=== PATIENT | female | born 1995 | race Caucasian/White ===

== ENCOUNTER → 2017-09-15 | Outpatient (CLI) | payer OTHER ==
--- NOTE | 2017-09-15 17:13 | US ---
EXAMINATION TYPE: US OB <= 14 wk fetus DATE OF EXAM: 09/15/2017 COMPARISON: NONE CLINICAL HISTORY: Z34.01 Encounter for normal : ; smoker; patient denies pelvic pain EXAM PERFORMED: Transabdominal (TA) EXAM MEASUREMENTS: GESTATIONAL AGE / DATING Physician Established: Not yet established Dates by LMP: (7 weeks/3 days) EDC: 05/01/2018 Dates by First Scan: No previous; this is first scan Dates by Current Scan for: (7 weeks/2 days) EDC: 05/02/2018 MATERNAL ANATOMY Uterus: 8.5 x 4.6 x 4.5cm Right Ovary: 3.8 x 2.9 x 2.3cm Left Ovary: 7.2 x 6.5 x 5.4cm ; enlarged left ovary with enlarged cyst = 7.2 x 6.6 x 4.8cm with inter nal echoes posterior wall. Post CDS / Adnexa: wnl Presence of free fluid: no Presence of corpus luteal cyst: may be in left ovary as enlarged thick walled cyst adjacent to thin w alled enlarged cyst. TAUS performed to better assess left ovary located very lateral pelvis. Minimal color flow is seen at periphery, but is believed to be documented in ovarian artery and vein. Presence of subchorionic bleed: small anechoic area noted superior to gestational sac = 0.3 x 0.4 x 1 .2cm. GESTATION / SURVEY CRL: 1.1cm (7 weeks/2 days) Yolk Sac (normal less than 6mm): 2.4mm Heart Rate: 138 bpm Rhythm: Normal IUP: Viable IUP Date of LMP: 07/25/2017 Beta HcG (if available): NA Single, live IUP, 7 weeks/2 days, EDC: 05/02/2018; [id number]; possible small subchorionic bleed; enlar ged left ovary with enlarged cyst. IMPRESSION: There is a tiny 12 x 3 mm subchorionic fluid collection consistent with subchorionic hemorrhage. Single living fetus with gestational age of 7 weeks 2 days. Very large left ovarian cyst that measures 7.2 x 5 cm.
== END | disposition home or self-care (01) ==
LOC: RADUSWWP 15:31
PROVIDERS: ATTEND Obstetrics & Gynecology
DX: O34.81 Maternal care for other abnormalities of pelvic organs, first trimester (principal); N83.202 Unspecified ovarian cyst, left side; Z3A.01 Less than 8 weeks gestation of pregnancy
CPT/HCPCS: 76801

== ENCOUNTER 2022-01-05 14:18 | Emergency (ER) | payer OTHER ==
[2022-01-05 14:36] VITALS: RESP 16; TEMP 98.1
[2022-01-05] MEDS ORDERED: SODIUM CHLORIDE 0.9% 1,000 ML IV STA (15:27)
--- NOTE | 2022-01-05 16:04 | ED ---
Abdominal Pain HPI - General Chief Complaint: OB/Uterine Contractions Stated Complaint: 19 weeks preg/Abd pressure Time Seen by Provider: 01/05/22 15:09 Source: patient Mode of arrival: ambulatory Limitations: no limitations - History of Present Illness Initial Comments: Patient is a 26-year-old A0 female at 18 weeks 6 days who presents to the emergency department with a chief complaint of pelvic pain. Patient states the pain started last night in the bilateral pelvic region. States pain is mild, intermittent, and when it occurs she also feels a "pressure in her vagina." States it does not feel like early [place]. States she does not have burning with urination however states the pressure in her vagina worsens with urination. She denies fever, chills, nausea, vomiting, blood in the urine, vaginal discharge, and vaginal bleeding. Denies concern for STIs. Patient's OB is Dr. Taylor however states she is looking for a new OB for delivery due to [facility] OB floor closing. - Related Data Allergies Allergy/AdvReac Type Severity Reaction Status Date / Time No Known Allergies Allergy Verified 01/05/22 14:35 Review of Systems ROS Statement: Those systems with pertinent positive or pertinent negative responses have been documented in the HPI. ROS Other: All systems not noted in ROS Statement are negative. Past Medical History Past Medical History: No Reported History History of Any Multi-Drug Resistant Organisms: None Reported Past Surgical History: No Surgical Hx Reported Past Psychological History: No Psychological Hx Reported Smoking Status: Current every day smoker Past Alcohol Use History: Rare Past Drug Use History: Marijuana General Exam Limitations: no limitations General appearance: alert Head exam: Present: atraumatic, normocephalic, normal inspection Eye exam: Present: normal appearance, PERRL, EOMI. Absent: scleral icterus, conjunctival injection, periorbital swelling Respiratory exam: Present: normal lung sounds bilaterally. Absent: respiratory distress, wheezes, rales, rhonchi, stridor Cardiovascular Exam: Present: regular rate, normal rhythm, normal heart sounds. Absent: systolic murmur, diastolic murmur, rubs, gallop, clicks GI/Abdominal exam: Present: soft, normal bowel sounds. Absent: distended, tenderness, guarding, rebound, rigid External exam: Present: normal external exam Speculum exam: Present: normal speculum exam, vaginal discharge (white, normal consistency ). Absent: vaginal bleeding Neurological exam: Present: alert, oriented X3, CN II-XII intact Psychiatric exam: Present: normal affect, normal mood Skin exam: Present: warm, dry, intact, normal color. Absent: rash Course Vital Signs 01/05/22 14:33 Temperature 98.1 F Pulse Rate 81 Respiratory 16 Rate Blood Pressure 108/67 O2 Sat by Pulse 99 Oximetry Medical Decision Making - Medical Decision Making This is a 26-year-old female who presents with intermittent bilateral pelvic pain. Thorough history and examination were performed. Patient is well-appearing and in no apparent distress. No vaginal bleeding. Abdomen is soft and nontender. Due to patient's report of vaginal pain I did perform a speculum exam which was normal. I will obtain laboratory studies as well as ultrasound. Laboratory studies are relatively unremarkable. Serum hCG is 5841.8. Urinalysis is not indicative of infection. Ultrasound shows a single intrauterine gestation with heart rate at 157. Results discussed with patient. Patient reassured that baby is doing well. She will be referred to Dr. Martinez. She is instructed to schedule an appointment with her in 1-2 days. Return parameters discussed. Patient verbalizes understanding and is agreeable to this plan. Dr. Cordoba is my attending. - Lab Data Result diagrams: 01/05/22 15:39 01/05/22 15:39 Lab Results 01/05/22 01/05/22 01/05/22 Range/Units 15:39 15:39 15:39 WBC 8.8 (3.8-10.6) k/uL RBC 4.35 (3.80-5.40) m/uL Hgb 13.1 (11.4-16.0) gm/dL Hct 38.0 (34.0-46.0) % MCV 87.4 (80.0-100.0) fL MCH 30.0 (25.0-35.0) pg MCHC 34.4 (31.0-37.0) g/dL RDW 13.6 (11.5-15.5) % Plt Count 187 (150-450) k/uL MPV 8.3 Neutrophils % 75 % Lymphocytes % 19 % Monocytes % 4 % Eosinophils % 1 % Basophils % 0 % Neutrophils # 6.6 (1.3-7.7) k/uL Lymphocytes # 1.6 (1.0-4.8) k/uL Monocytes # 0.4 (0-1.0) k/uL Eosinophils # 0.1 (0-0.7) k/uL Basophils # 0.0 (0-0.2) k/uL Sodium 135 L (137-145) mmol/L Potassium 3.5 (3.5-5.1) mmol/L Chloride 107 (98-107) mmol/L Carbon Dioxide 19 L (22-30) mmol/L Anion Gap 9 mmol/L BUN 6 L (7-17) mg/dL Creatinine 0.46 L (0.52-1.04) mg/dL Est GFR (CKD-EPI)AfAm >90 (>60 ml/min/1.73 sqM) Est GFR (CKD-EPI)NonAf >90 (>60 ml/min/1.73 sqM) Glucose 105 H (74-99) mg/dL Calcium 8.6 (8.4-10.2) mg/dL Total Bilirubin 0.3 (0.2-1.3) mg/dL AST 20 (14-36) U/L ALT 12 (4-34) U/L Alkaline Phosphatase 61 (38-126) U/L Total Protein 6.2 L (6.3-8.2) g/dL Albumin 3.6 (3.5-5.0) g/dL Lipase 18 L (23-300) U/L HCG, Quant 5841.8 mIU/mL Urine Color Yellow Urine Appearance Cloudy H (Clear) Urine pH 6.0 (5.0-8.0) Ur Specific [place] 1.022 (1.001-1.035) Urine Protein Trace H (Negative) Urine Glucose (UA) Negative (Negative) Urine Ketones 2+ H (Negative) Urine Blood Negative (Negative) Urine Nitrite Negative (Negative) Urine Bilirubin Negative (Negative) Urine Urobilinogen <2.0 (<2.0) mg/dL Ur Leukocyte Esterase Small H (Negative) Urine RBC 1 (0-5) /hpf Urine WBC 6 H (0-5) /hpf Ur Squamous Epith Cells 35 H (0-4) /hpf Calcium Oxalate Crystal Moderate H (None) /hpf Urine Mucus Many H (None) /hpf Disposition Clinical Impression: Abdominal pain affecting , Vaginal pain Disposition: HOME SELF-CARE Condition: Good Instructions (If sedation given, give patient instructions): Abdominal Pain in (ED) Additional Instructions: Please follow up with [employer] in one to 2 days. I did refer you to another OB for you to reach out to regarding delivery. Return to the emergency department if you experience new, concerning, or worsening symptoms. Is patient prescribed a controlled substance at d/c from ED?: No Referrals: None,Stated [Primary Care Provider] - 1-2 days Gladis Martinez DO [Doctor of Osteopathic Medicine] - 1-2 days Time of Disposition: 17:39
[2022-01-05 16:10] LABS: Basophils % (A) 0 %; Eosinophils # (A) 0.1 k/uL (0-0.7); Eosinophils % (A) 1 %; HGB 13.1 gm/dL (11.4-16.0); Lymphocytes # (A) 1.6 k/uL (1.0-4.8); Lymphocytes % (A) 19 %; MCHC 34.4 g/dL (31.0-37.0); MCV 87.4 fL (80.0-100.0); Mean Platelet Volume 8.3; Monocytes # (A) 0.4 k/uL (0-1.0); Monocytes % (A) 4 %; Neutrophils # (A) 6.6 k/uL (1.3-7.7); Neutrophils % (A) 75 %; Platelet Count 187 k/uL (150-450); RBC 4.35 m/uL (3.80-5.40); RDW 13.6 % (11.5-15.5); WBC 8.8 k/uL (3.8-10.6)
[2022-01-05 16:15] LABS: Appearance,Urine Cloudy (Clear); Bilirubin,Urine Negative (Negative); Blood,Urine Negative (Negative); Calcium Oxalate Crystals,Urine Moderate /hpf; Color,Urine Yellow; Glucose,Urine (UA) Negative (Negative); Ketones,Urine 2+ (Negative); Leukocyte Esterase,Urine Small (Negative); Mucus,Urine Many /hpf; Nitrite,Urine Negative (Negative); Protein,Urine Trace (Negative); RBC,Urine 1 /hpf (0-5); Specific Gravity,Urine 1.022 (1.001-1.035); Squamous Epithelial Cell,Urine 35 /hpf (0-4); Urobilinogen,Urine <2.0 mg/dL (<2.0); WBC,Urine 6 /hpf (0-5)
[2022-01-05 16:27] LABS: ALT 12 U/L (4-34); AST 20 U/L (14-36); African American GFR (CKD) >90 (>60 ml/min/1.73 sqM); Albumin 3.6 g/dL (3.5-5.0); Alkaline Phosphatase 61 U/L (38-126); Anion Gap 9 mmol/L; Blood Urea Nitrogen 6 mg/dL (7-17); Calcium 8.6 mg/dL (8.4-10.2); Carbon Dioxide 19 mmol/L (22-30); Chloride 107 mmol/L (98-107); Glucose 105 mg/dL (74-99); Lipase 18 U/L (23-300); Non-African American GFR(CKD) >90 (>60 ml/min/1.73 sqM); Potassium 3.5 mmol/L (3.5-5.1); Sodium 135 mmol/L (137-145); Total Bilirubin 0.3 mg/dL (0.2-1.3); Total Protein 6.2 g/dL (6.3-8.2)
[2022-01-05 16:43] LABS: HCG,Quantitative Serum 5841.8 mIU/mL
--- NOTE | 2022-01-05 17:19 | US ---
EXAMINATION TYPE: US OB >= 14 wk fetus DATE OF EXAM: 01/05/2022 COMPARISON: None CLINICAL HISTORY: cramping pain TECHNIQUE: Transabdominal (TA) GESTATIONAL AGE / DATING Physician Established: (18 weeks/6 days) EDC: 06/02/2022 Dates by LMP: LMP unknown Dates by First Scan: No previous this is first scan Dates by Current Scan: (19 weeks/2 days) EDC: 05/30/2022 Beta HCG (if available): not available SURVEY IUP: Single PLACENTA: Anterior PREVIA: No Previa VERNA: 13.7 cm Normal CERVICAL LENGTH (transabdominal: norm > 3.0cm): 3.7 cm BIOMETRY PRESENTATION: Breech BPD: 4.5 cm 19 weeks / 4 days HC: 16.1 cm 18 weeks / 6 days AC: 14.4 cm 19 weeks / 5 days FL: 3.2 cm 19 weeks / 6 days ESTIMATED WEIGHT IN GRAMS: 305.52 grams ESTIMATED WEIGHT IN LBS/OZ: 0 lbs. 11 oz. WEIGHT PERCENTAGE BASED ON ESTABLISHED DATES: 88.5% HC/AC: 1.11 Normal FL/AC: 21.9 Normal HEART RATE: 157 bpm RHYTHM: Normal IMPRESSION: 1. Single intrauterine gestation estimated at 19 weeks 2 days gestation based on current ultrasound m easurements. Cardiac activity measures 157 bpm.
[2022-01-05 17:56] VITALS: BP 100/58; PULSE 70
== END 2022-01-05 17:56 | disposition home or self-care (01) ==
LOC: EC 14:18
DX: O26.892 Other specified pregnancy related conditions, second trimester (principal); R10.2 Pelvic and perineal pain; O99.332 Smoking (tobacco) complicating pregnancy, second trimester; F17.200 Nicotine dependence, unspecified, uncomplicated; Z3A.19 19 weeks gestation of pregnancy
CPT/HCPCS: 36415; 76805; 80053; 81001; 83690; 84702; 85025; 96360; 99284

== ENCOUNTER → 2022-02-07 | Outpatient (CLI) | payer OTHER ==
--- NOTE | 2022-02-07 18:23 | US ---
EXAMINATION TYPE: US OB >= 14 wk fetus DATE OF EXAM: 02/07/2022 COMPARISON: 01/05/2022 CLINICAL HISTORY: 26-year-old female Z34.90 supervision of normal TECHNIQUE: Transabdominal (TA) FINDINGS: GESTATIONAL AGE / DATING Physician Established: (23 weeks/4 days) EDC: 06/02/2022 Dates by LMP: LMP unknown Dates by First Scan: (24 weeks/0 days) EDC: 05/30/2022 Dates by Current Scan: (23 weeks/2 days) EDC: 06/04/2022 SURVEY IUP: Single PLACENTA: Anterior PREVIA: Marginal placenta previa. VERNA: 11.8 cm Normal CERVICAL LENGTH (transabdominal: norm > 3.0cm): 4.1 cm BIOMETRY PRESENTATION: Breech BPD: 5.8 cm 23 weeks / 4 days HC: 21.0 cm 23 weeks / 1 days AC: 19.0 cm 23 weeks / 5 days FL: 4.3 cm 23 weeks / 6 days ESTIMATED WEIGHT IN GRAMS: 624 grams ESTIMATED WEIGHT IN LBS/OZ: 1 lbs. 6 oz. WEIGHT PERCENTAGE BASED ON ESTABLISHED DATES: 50% HC/AC: 1.11 Normal FL/AC: 22.37 Normal HEART RATE: 146 bpm RHYTHM: Normal IMPRESSION: 1. Single live intrauterine with physician established gestational age of 23 weeks 4 days. Current ultrasound biometry is concordant (23 weeks 2 days). 2. We note that there has been 5 days less growth than expected compared to 01/05/2022. EFW is at the 50th percentile now (versus 89 percentile, previously). Additional follow-up to ensure appropriate gr owth. 3. Note marginal placenta previa.
== END | disposition home or self-care (01) ==
LOC: RADUSWWP 15:01
PROVIDERS: ATTEND Obstetrics & Gynecology
DX: Z34.92 Encounter for supervision of normal pregnancy, unspecified, second trimester (principal); Z3A.23 23 weeks gestation of pregnancy
CPT/HCPCS: 76805

== ENCOUNTER → 2022-05-03 | Outpatient (CLI) | payer OTHER ==
--- NOTE | 2022-05-03 12:49 | US ---
EXAMINATION TYPE: US OB >= 14 wk fetus DATE OF EXAM: 05/03/2022 COMPARISON: US 02/07/2022. CLINICAL HISTORY: Z34.90 normal Growth TECHNIQUE: Transabdominal (TA) GESTATIONAL AGE / DATING Physician Established: (35weeks/5 days) EDC: 06/02/2022 Dates by LMP: LMP unknown Dates by First Scan: (36weeks/1 days) EDC: 05/30/2022 Dates by Current Scan: (35weeks/4 days) EDC: 06/03/2022 SURVEY IUP: Single PLACENTA: Anterior PREVIA: No Previa VERNA: 12.1 cm Normal CERVICAL LENGTH (transabdominal: norm > 3.0cm): 3.2 cm BIOMETRY PRESENTATION: Vertex BPD: 8.9 cm 35 weeks / 6 days HC: 32.0 cm 36 weeks / 0 days AC: 32.8 cm 36 weeks / 5 days FL: 6.9 cm 35 weeks / 4 days ESTIMATED WEIGHT IN GRAMS: 2894 grams ESTIMATED WEIGHT IN LBS/OZ: 6 lbs. 6 oz. WEIGHT PERCENTAGE BASED ON ESTABLISHED DATES: 65.9% HC/AC: 1.0 Normal FL/AC: 21 Normal HEART RATE: 135 bpm RHYTHM: Normal IMPRESSION: Single live intrauterine with ultrasound estimated gestational age of 35 weeks 4 days. Curr ent ultrasound biometry is concordant. EFW has increased now measuring 65.9%, previously 50%.
== END | disposition home or self-care (01) ==
LOC: RADUSWWP 11:51
PROVIDERS: ATTEND Obstetrics & Gynecology
DX: Z34.90 Encounter for supervision of normal pregnancy, unspecified, unspecified trimester (principal)
CPT/HCPCS: 76805

== ENCOUNTER 2024-02-29 14:08 | Emergency (ER) | payer SELFPAY ==
[2024-02-29] MEDS ORDERED: AZITHROMYCIN 500 MG TAB ONE (15:56)
[2024-02-29] MEDS ORDERED: cefTRIAXone 1,000 MG VIAL (IM USE) IM ONE (15:57)
== END 2024-02-29 16:23 | disposition home or self-care (01) ==
LOC: EC 14:08
DX: N39.0 Urinary tract infection, site not specified (principal)
CPT/HCPCS: 87491; 96372; 99282